=== PATIENT | female | born 1950 | race Two or more races ===

== ENCOUNTER 2024-09-18 13:23 | Emergency (ER) | payer MEDICARE, OTHER ==
[~2024-09-18] VITALS: Ht 154.9 cm; Wt 68.0 kg
[~2024-09-18 13:23] MED LIST: ASPI-807 PO; FOLI1TAB94 PO; LANS15TA5 PO; MESA400T15 PO; METF-440 PO
[2024-09-18 13:34] VITALS: TEMP 98.1
[2024-09-18 14:40] LABS: PLATELET COUNT (AUTO) 313 K/uL (150-450); RED BLOOD CELL COUNT(AUTO) 4.54 MIL/uL (4.0-5.2); RED CELL DISTRIBUTION WIDTH 14.4 % (11.5-15.0); WHITE BLOOD COUNT (AUTO) 6.4 K/uL (4.3-11.0)
[2024-09-18 14:51] LABS: CALCIUM, SERUM 10.1 mg/dL (8.5-10.1); CREATININE 0.8 mg/dL (0.6-1.3); SODIUM SERUM 142 mmol/L (136-145); UREA NITROGEN, BLOOD 21 mg/dL (7-18)
[2024-09-18 15:08] LABS: NT-PRO BNP 102 pg/mL (0-125)
[2024-09-18 15:10] VITALS: BP 133/58; O2SAT 99
== END 2024-09-18 15:42 | disposition home or self-care (01) ==
LOC: ER 13:33
DX: R06.02 Shortness of breath (principal); R00.2 Palpitations; R55 Syncope and collapse; I10 Essential (primary) hypertension; E11.9 Type 2 diabetes mellitus without complications; E87.70 Fluid overload, unspecified; F41.1 Generalized anxiety disorder; I49.1 Atrial premature depolarization; K50.90 Crohn's disease, unspecified, without complications; Z79.82 Long term (current) use of aspirin; Z79.84 Long term (current) use of oral hypoglycemic drugs; Z88.0 Allergy status to penicillin; Z88.1 Allergy status to other antibiotic agents; Z88.5 Allergy status to narcotic agent
CPT/HCPCS: 36415; 71045-TC; 80048-TC; 83880; 84484-TC; 85025-TC